=== PATIENT | male | born 1945 | race Caucasian/White ===

== ENCOUNTER → 2018-05-14 07:15 | Outpatient (CLI) | payer MEDICARE, OTHER, SELFPAY ==
[2018-05-15 10:35] LABS: PSA, Screening 3.4 ng/ml (0-6.5)
== END ==
PROVIDERS: PCP Nurse Practitioner Family; Visit Provider Urology
DX: N13.8 Other obstructive and reflux uropathy (principal); N40.1 Benign prostatic hyperplasia with lower urinary tract symptoms; R39.11 Hesitancy of micturition; Z12.5 Encounter for screening for malignant neoplasm of prostate
CPT/HCPCS: 36415; 84153

== ENCOUNTER → 2018-05-20 08:30 | Outpatient (CLI) | payer MEDICARE, OTHER, SELFPAY | PROVIDERS: PCP Nurse Practitioner Family; Visit Provider Urology | DX: N40.1 Benign prostatic hyperplasia with lower urinary tract symptoms (principal); N13.8 Other obstructive and reflux uropathy; R39.11 Hesitancy of micturition; R97.20 Elevated prostate specific antigen [PSA] | CPT/HCPCS: 99213 ==

== ENCOUNTER 2019-02-13 08:10 | Outpatient (CLI) | payer MEDICARE, OTHER, SELFPAY ==
[2019-02-13 09:36] LABS: Cholesterol 166 mg/dL (50-200); HDL Cholesterol 79 mg/dL (40-60); LDL CHOLESTEROL 81 mg/dL (<100); Triglyceride 30 mg/dL (30-150)
== END 2019-02-13 08:30 ==
PROVIDERS: PCP Nurse Practitioner Family; Visit Provider Student in an Organized Health Care Education/Training Program
DX: E78.5 Hyperlipidemia, unspecified (principal)
CPT/HCPCS: 80061; 83721

== ENCOUNTER 2019-02-16 00:39 | Outpatient (CLI) | payer MEDICARE, OTHER, SELFPAY ==
--- NOTE | 2019-02-16 09:30 | ETT_ITS ---
*[facility]* *[facility]* [address] [place] [address] Stress Electrocardiography Jae protocol Date of study: 02/16/2019 *PATIENT PRESENTATION* Height: 182.9cm (72in) Blood Pressure: Weight: 81.8kg (180lb) BSA: 2.04m^2 Referring physician: Star Hopkins Ordering physician: Star Hopkins Impressions: Normal study after maximal exercise. Summary: 1. Stress ECG conclusions: The stress ECG is negative. Vasquez treadmill score: 12. This score predicts a low risk of cardiac events. 2. Stress: The target heart rate was achieved. The heart rate response to stress is normal. There is a normal resting blood pressure with an appropriate response to stress. The patient experienced no chest pain during stress. Exercise capacity is normal for age. Indication: I25.10. History: Patient's presenting symptoms: asymptomatic. Patient's presenting symptoms: asymptomatic. REASON FOR VISIT: DOT REQUIREMENT FOR CDL LICENSURE. PAST MEDICAL HISTORY: CORONARY ARTERY DISEASE, HYPERLIPIDEMIA, BPH WITH URINARY OBSTRUCTION, GOUT. FAMILY HISTORY: NONE. SMOKING STATUS: NONE. EXERCISE ROUTINE: TREADMILL FOR 30-40 MIN 5X/WEEK. BICYCLE 5X/WEEKS IN WARMER MONTHS. Risk factors: Dyslipidemia. Cholesterol: 126mg/dl. HDL: 79mg/dl. LDL: 81mg/dl. Triglycerides: 30mg/dl. ALLERGIES: GLUTEN, LACTOSE, ATORVASTATIN. MEDICATIONS: VARDENAFIL 5MG, DAILY. PRAVASTATIN 10MG, DAILY. OXYBUTIN CHLORIDE ER 5MG DAILY. OMEGA-3 FATTY ACIDS 1,000 MG, DAILY. NITROGLYCERIN 0.4MG, PRN. NIACIN ER 500MG, QAM. MULTIVITAMIN 1 EACH, DAILY. DESMOPRESSIN 0.2MG, HS. VITAMIN B-12 1,000 MG, DAILY. COENZYME Q10 100MG, DAILY. VITAMIN D3 1,000 UNITS, DAILY. ASPIRIN 81MG, DAILY. Protocol: Jae protocol. Baseline ECG: SINUS RHYTHM, HEART RATE 63 BPM. Stress protocol: + +---+ + !Stage !HR !BP (mmHg) ! + +---+ + !Baseline supine !63 !130/76 (94) ! + +---+ + !Baseline standing !70 !130/80 (97) ! + +---+ + !Stage I; 1.7mph, 10degrees; 3 min !90 !140/80 (100)! + +---+ + !Stage II; 2.5mph, 12degrees; 3 min !98 !148/80 (103)! + +---+ + !Stage III; 3.4mph, 14degrees; 3 min!129!154/98 (117)! + +---+ + !Stage IV; 4.2mph, 16degrees; 3 min !146!160/90 (113)! + +---+ + !Recovery; 1 min !111!150/60 (90) ! + +---+ + !Recovery; 3 min !97 !140/70 (93) ! + +---+ + !Recovery; 6 min !80 !120/60 (80) ! + +---+ + * Stress results: Maximal heart rate during stress was 146bpm (99% of maximal predicted heart rate). The maximal predicted heart rate was 148bpm. The target heart rate was achieved. The heart rate response to stress is normal. There is a normal resting blood pressure with an appropriate response to stress. The rate-pressure product for the peak heart rate and blood pressure was 54555du Hg/min. The patient experienced no chest pain during stress. Exercise capacity is normal for age. Stress ECG: TREADMILL PORTION OF EXERCISE STRESS TEST ENDED IN 11MIN 27MIN DUE TO PATIENT FATIGUE. APPROPRIATE HEART RATE AND BLOOD PRESSURE RESPONSE TO EXERCISE. MAXIMAL HR 146 BPM, 98% OF TARGET. APPROXIMATE METS ACHIEVED 13.48. NO ANGINA REPORTED. OCCASIONAL PVC DURING EXERCISE. NO SIGNIFICANT ST SEGMENT CHANGES NOTED. ABOVE AVERAGE FUNCTIONAL CAPACITY. The stress ECG is negative. Vasquez treadmill score: 12. This score predicts a low risk of cardiac events. Study data: Emiliano Oreilly MD supervised and was readily available during the procedure. This study was interpreted by [facility]. Study status: Routine. Consent: The risks, benefits, and alternatives to the procedure were explained to the patient and informed consent was obtained. Procedure: Initial setup. A baseline ECG was recorded. Surface ECG leads and manual cuff blood pressure measurements were monitored. Heart sounds: Normal. Lung sounds: Normal. Treadmill exercise testing was performed using the Jae protocol. Study completion: The patient tolerated the procedure well and was discharged from the lab. Discharge: The patient left the laboratory in stable condition. Birthdate: Patient birthdate: 1945. Sex: Gender: male. Study date: Study date: 02/16/2019. Study time: 00:01 AM. Electronically signed by Emiliano Oreilly MD 02/16/2019 19:04
== END 2019-02-16 00:59 ==
PROVIDERS: PCP Nurse Practitioner Family; Visit Provider Student in an Organized Health Care Education/Training Program
DX: I25.10 Atherosclerotic heart disease of native coronary artery without angina pectoris (principal); E78.5 Hyperlipidemia, unspecified; Z02.79 Encounter for issue of other medical certificate
CPT/HCPCS: 93016; 93018; 93017

== ENCOUNTER → 2019-02-18 08:59 | Outpatient (BNVA) | payer MEDICARE, OTHER, SELFPAY | PROVIDERS: PCP Nurse Practitioner Family; Visit Provider Student in an Organized Health Care Education/Training Program | DX: I25.10 Atherosclerotic heart disease of native coronary artery without angina pectoris (principal); E78.00 Pure hypercholesterolemia, unspecified | CPT/HCPCS: 99214 ==

== ENCOUNTER 2019-05-13 14:15 | Outpatient (CLI) | payer MEDICARE, OTHER, SELFPAY | END 2019-05-13 14:35 | PROVIDERS: PCP Nurse Practitioner Family; Visit Provider Urology | DX: R97.20 Elevated prostate specific antigen [PSA] (principal); N40.0 Benign prostatic hyperplasia without lower urinary tract symptoms | CPT/HCPCS: 36415; 84153 ==

== ENCOUNTER → 2019-05-22 07:50 | Outpatient (BNVA) | payer MEDICARE, OTHER, SELFPAY | PROVIDERS: PCP Nurse Practitioner Family; Visit Provider Urology | DX: R35.1 Nocturia (principal); N40.1 Benign prostatic hyperplasia with lower urinary tract symptoms; N13.8 Other obstructive and reflux uropathy; R97.20 Elevated prostate specific antigen [PSA] | CPT/HCPCS: 99213 ==

== ENCOUNTER 2019-07-30 14:01 | Outpatient (CLI) | payer MEDICARE, OTHER, SELFPAY ==
--- NOTE | 2019-07-30 15:00 | DI.RAD_ITS ---
EXAM: XR KNEE LT 3V AP,LAT,PEDRO INDICATION: LT KNEE PAIN, M25.569. COMPARISON: No exams were available for comparison TECHNIQUE: 2D digital imaging was performed. FINDINGS: The femoral tibial and patellofemoral joint spaces are well maintained. There is no significant per iarticular spurring. Vascular calcifications are seen. There are prominent venous varicosities kelin g the medial aspect of the knee. No joint effusion is seen. IMPRESSION: No acute abnormality.
== END 2019-07-30 14:21 ==
PROVIDERS: PCP Nurse Practitioner Family; Visit Provider Nurse Practitioner Family
DX: M25.562 Pain in left knee (principal); I83.92 Asymptomatic varicose veins of left lower extremity
CPT/HCPCS: 73562

== ENCOUNTER → 2019-12-01 15:22 | Outpatient (BNVA) | payer MEDICARE, OTHER, SELFPAY | PROVIDERS: PCP Nurse Practitioner Family; Referring Provider Nurse Practitioner Family; Visit Provider Urology | DX: N40.1 Benign prostatic hyperplasia with lower urinary tract symptoms (principal); N13.8 Other obstructive and reflux uropathy; R97.20 Elevated prostate specific antigen [PSA] | CPT/HCPCS: 99213 ==

== ENCOUNTER → 2020-02-16 14:45 | Outpatient (BNVA) | payer MEDICARE, OTHER, SELFPAY | PROVIDERS: PCP Nurse Practitioner Family; Referring Provider Nurse Practitioner Family; Visit Provider Internal Medicine Cardiovascular Disease | DX: I25.10 Atherosclerotic heart disease of native coronary artery without angina pectoris; E78.5 Hyperlipidemia, unspecified | CPT/HCPCS: 99442; 99213 ==

== ENCOUNTER → 2021-02-14 08:38 | Outpatient (BNVA) | payer MEDICARE, OTHER, SELFPAY | PROVIDERS: PCP Nurse Practitioner Family; Referring Provider Nurse Practitioner Family; Visit Provider Internal Medicine Cardiovascular Disease | DX: I25.10 Atherosclerotic heart disease of native coronary artery without angina pectoris (principal) | CPT/HCPCS: 99213 ==